=== PATIENT | male | born 2000 | race Caucasian/White ===

== ENCOUNTER 2024-05-15 00:11 | Emergency (ER) | payer BC, SELFPAY ==
[2024-05-15 00:12] VITALS: BP 160/104
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
[2024-05-15 02:35] VITALS: BP 133/83
== END 2024-05-15 02:40 | disposition home or self-care (01) ==
LOC: EMR 00:11
PROVIDERS: EMERGENCY PHYSICIAN Emergency Medicine
DX: R45.851 Suicidal ideations (principal); J45.909 Unspecified asthma, uncomplicated; K21.9 Gastro-esophageal reflux disease without esophagitis; F41.8 Other specified anxiety disorders; F60.3 Borderline personality disorder; F90.9 Attention-deficit hyperactivity disorder, unspecified type; G93.32 Myalgic encephalomyelitis/chronic fatigue syndrome; F17.290 Nicotine dependence, other tobacco product, uncomplicated
CPT/HCPCS: 99283

== ENCOUNTER 2024-05-15 03:24 | Emergency (ER) | payer BC, SELFPAY ==
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
[2024-05-15 06:10] LABS: % Basophils 0.3 % (0-2); % Eosinophils 0.4 % (0-6); % Immature Granulocytes 0.4 % (0-0.5); % Lymphocytes 20.6 % (20.5-51.1); % Neutrophils 71.3 % (42.2-75.2); Absolute Eosinophils 0.1 10^3/uL (0-0.7); Absolute Immature Granulocytes 0.1 10^3/uL (0-0.05); Absolute Lymphocytes 2.3 10^3/uL (1.2-3.4); Absolute Monocytes 0.8 10^3/uL (0.1-0.6); Hematocrit 36.8 % (39.0-52.0); Hemoglobin 13.3 g/dL (13.0-18.0); Mean Corp Hgb Conc. 36.1 g/dL (33.0-37.0); Mean Corpuscular Hgb 29.2 pg (27.0-31.0); Mean Corpuscular Volume 80.9 fL (80.0-94.0); Mean Platelet Volume 8.9 fL (7.4-10.4); Nucleated Red Blood Cells % 0 % (-); Platelet Count 317 10^3/uL (130-400); Red Blood Cell Count 4.55 10^6/uL (4.70-6.10); Red Cell Dist. Width 12.7 % (11.5-14.5); White Blood Cell Count 11.2 10^3/uL (4.8-10.8)
[2024-05-15 06:20] LABS: Albumin 4.9 g/dl (3.5-5.0)
[2024-05-15 06:25] LABS: ALT (SGPT) 24 U/L (0-50); AST (SGOT) 19 U/L (17-59); Alkaline Phosphatase 58 U/L (38-126); Blood Urea Nitrogen 11 mg/dl (9-20); Calcium 9.8 mg/dl (8.4-10.2); Carbon Dioxide 22 mmol/L (22-30); Chloride 104 mmol/L (98-107); Glucose 111 mg/dl (70-99); Potassium 3.9 mmol/L (3.5-5.1); Sodium 139 mmol/L (135-145); Total Bilirubin 0.6 mg/dl (0.2-1.3); Total Protein 7.1 g/dl (6.3-8.2); eGFR > 60.00
[2024-05-15 06:51] LABS: Alcohol < 10 mg/dl
[2024-05-15 08:38] VITALS: BP 147/91
--- NOTE | 2024-05-15 08:44 | EDRN ---
Patient is calm and cooperative. Patient stated 'I don't feel suicidal now but if I would go back to the apartment or my parents I would probably not feel safe and would have thoughts again.'
[2024-05-15 09:14] LABS: Amphetamines Positive (Negative); Barbiturates Negative (Negative); Benzodiazepines Negative (Negative); Buprenorphine Negative (Negative); Cocaine Negative (Negative); Marijuana Positive (Negative); Methadone Negative (Negative); Methamphetamines Negative (Negative); Opiates Negative (Negative); Phencyclidine Negative (Negative); Tricyclic Antidepressants Negative (Negative)
[2024-05-15 09:51] LABS: Fentanyl, Urine Negative (Negative)
--- NOTE | 2024-05-15 13:58 | ED.CRISIS ---
ED Crisis Note
ED Crisis Note
Subjective:
Patient denying any suicidal homicidal ideations
Objective:
Sitting in bed comfortably. No acute distress
Assessment/Plan:
Patient was initially placed on a backup 302 with concerns for suicidal thoughts. However, she was evaluated by psychiatry and deemed stable to go home. On my evaluation, patient does feel safe going home and denies any suicidal homicidal
ideations. She states she will tell her parents to hide any sharps in the house in case she changed her mind.
She understands that she can return anytime if she has thoughts of hurting himself
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
== END 2024-05-15 14:05 | disposition home or self-care (01) ==
LOC: EMR 03:24
PROVIDERS: EMERGENCY PHYSICIAN Emergency Medicine
DX: R45.851 Suicidal ideations (principal); S50.812A Abrasion of left forearm, initial encounter; X58.XXXA Exposure to other specified factors, initial encounter; F41.8 Other specified anxiety disorders; J45.909 Unspecified asthma, uncomplicated; K21.9 Gastro-esophageal reflux disease without esophagitis; F60.3 Borderline personality disorder; F90.9 Attention-deficit hyperactivity disorder, unspecified type; G93.32 Myalgic encephalomyelitis/chronic fatigue syndrome; F17.290 Nicotine dependence, other tobacco product, uncomplicated; Z79.899 Other long term (current) drug therapy
CPT/HCPCS: 99283; 80053; 80306; 80307; 82077; 85025